=== PATIENT | female | born 1950 | race Caucasian/White ===

== ENCOUNTER 2017-02-06 19:29 | Emergency (ER) | payer MEDICARE ==
[~2017-02-06] VITALS: Ht 149.9 cm; Wt 65.8 kg
[~2017-02-06 19:29] MED LIST: FUROSEMIDE 40MG40 M1 PO; K-DUR 20MEQ TA20 MEQ PO; KEFLEX 500MG.500 MG PO; LEVAQUIN500 MG PO; LIPITOR40 MG PO; MECLIZINE25 MG PO; MEDROL 4MG. DOSE4 MG PO; ONE DAILY WOME1 EACH PO; VITAMIN D1000 IU PO
[2017-02-06] MEDS ORDERED: IPRATROPIUM BROM3 M1 IH (19:46)
[2017-02-06] MEDS ORDERED: VENTOLIN H0.09 MG/AC IH (19:46)
--- NOTE | 2017-02-06 19:58 | [facility]gent Treatment Center Report ---
History of Present Issue Date/Time Seen by Provider 02/06/171956 Visit Reason Pt arrived:Walked Presenting Problem:PT STATES SHE BEGAN FEELING BAD APPROX 1600 TODAY. STATES PRODUCTIVE COUGH WITH BROWN SPUTUM, HEADACHE, NAUSEA AND FEVER. PT ALSO STATES SHORTNESS OF BREATH. Location if Accident: Onset of symptoms date/time:02/06/17 or onset unknown for: Have you (or family members/close friends) recently traveled outside the [place]? N If Yes, where/when: Have you had exposure to infectious disease within the past month? TB? Other? Specify: c/o productive cough, brown sputum, fatigue and low grade fever, 99.2, today. Hx of COPD and chronic bronchitis. Pt worried about PNA "because I have had it 4 times since June". 3 times from Jun to Sep 2016 all treated without CXR and with azithromycin and steroid (although steroids listed as allergy. "They just raise my blood pressure and make my face red sometimes but I still take them."). [place] pt seen in ER. CXR confirmed dx. treated w/ levaquin. Reports she improved. "I always keep a little cough and some shortness of breath". SOA worse last 2-3 days, only with exertion. Duonebs at home help. Last one 2 hours ago and was 4th once for the day since 0500. Other than duonebs and ventolin inhaler, no other COPD/lung medications or inhalers. Using ventolin "maybe once a day right now but when I am not sick, I go days without using it". Continues to smoke 1/2ppd. Grandkids have been sick but weeks ago. Source patient Exam Limitations no limitations ALLERGIES Coded Allergies: Corticosteroids (Glucocorticoids) (01/30/16) Penicillins (01/30/16) Sulfa (Sulfonamide Antibiotics) (04/08/16) codeine (01/30/16) erythromycin base (01/30/16) Home Medications Reported Medications CHOLECALCIFEROL (VITAMIN D3) (Vitamin D3) 2,000 IUNITS PO DAILY Furosemide 40 MG PO DAILY POTASSIUM CHL (Potassium Chloride) 20 MEQ PO DAILY Atorvastatin Calcium (Atorvastatin) 40 MG PO DAILY Multivit With Calcium,Iron,Min (One Daily Women's) 1 EACH PO DAILY ALBUTEROL-IPRATROPIUM (Iprat-Albut 0.5-3(2.5) MG/3 Ml) 3 ML IH Q2HP PRN ASTHMA #1080 ALBUTEROL (Ventolin Hfa) 1 PUFF IH Q6H6 History Medical History General CAD? No Angina: No VT: No Hypertension? Yes Hyperlipidemia? Yes CHF? No DVT? Yes PE? No COPD? No Asthma? Yes Anemia? No GERD? No Gastric ulcers? No GI Bleed? No Hernia? No Thyroid Problems? No Hypothyroidism? No CVA? No Seizures? No Diabetes? No Renal Insuffiency? No UTI? No Stones? No BPH? No GB Disease: No Nephritic Syndrome? No Asplenia? No Hepatitis? No Sickle Cell Disease? No Arthritis? Yes Migraines? No Cataracts? Yes Glaucoma? No MRSA? No HIV? No TB? No Anxiety? No Depression? No Cancer? No More? No Immunization HX DT/Tetanus 5-10 YRS Flu LAST YEAR Pneumonia 1-4 YRS Surgical Hx Previous Surgery?Y D AND C X 2 Tubal Ligation [place] Appendix LEFT BREAST BIOPSY RIGHT HAND SURGERY X 2 CYST REMOVED L HAND TRIGGER THUMB RT HAND COLONOSCOPY HEART CATH 90'S CATARACTS Family History Family HX Diabetes No CAD Yes Hypertension Yes Hyperlipidemia Yes Cancer Yes TB No Social History Smoking Hx Smoker: Current Every Day Smoker Tobacco: Yes Type Cigarettes Packs/day < 1 Pack Alcohol Alcohol: No Review of Systems All Other Systems Reviewed and Negative Constitutional see HPI ENT denies: ear pain, nose discharge, nose congestion, throat pain. Respiratory see HPI, wheezing ("a little") Cardiovascular denies chest pain Gastrointestinal denies no symptoms reported Musculoskeletal denies back pain Psychiatric/Neurological denies headache Physical Exam Vital Signs Vital Signs Date Time Temp Pulse Resp B/P Pulse O2 O2 Flow FiO2 Ox Delivery Rate 02/06 1942 98.2 101 20 151/82 93 General Appearance normal appearance, no apparent distress Ear, Nose, Throat normal ENT inspection Respiratory Status Yes: trachea midline, chest symmetrical, non tender chest, non productive cough. No: respiratory distress, use of accessory muscles, pain on inspiration, pain on expiration. Lung Sounds posterior: decreased breath sounds (base), crackles (base). left: decreased breath sounds (base). right: crackles (base). Cardiovascular regular rate/rhythm, no peripheral edema, no murmur Neurologic alert Skin normal color, warm/dry Medical Decision Making LABS/Meds/Orders Pt receiving controlled substance in ED? No Results/Orders Current Medication Orders Sig/Scottie Start time Last Medication Dose Route Stop Time Status Admin Doxycycline Hyclate 100 MG ONCE ONE 02/06 2100 DC 02/06 PO 02/06 Doxycycline Hyclate 0 .STK-MED ONE 02/06 2058 DC PO Orders Procedure Date/time Status [facility] FLU A,B 02/07 2008 Active CHEST(2 VIEWS-NOT PORTABLE) 02/06 1950 Active XRAY/CT/US XRAY/CT/US XRAY chest XR interpretation by reviewed by me (rvwd w/ Dr. Tran, ER MD) Xray Results unchanged from Oct. Atelectasis and possible RML PNA Consult MD Physician Consult Consult/PCP Dr. tran, ER MD Time Called 2029 Reason Pt. Condition Comments Suturing another patient initially. 2049 before he was available to discuss pt and review xray. Agrees that xray today looks unchanged when compared to Oct. With symptoms, would treat w/ levaquin or doxy. No suggestion for CT chest. Ensure follow up with primary care Departure Departure Time of Disposition 2055 Disposition DC Home or Self Care(routine) Clinical Impression Primary Impression: Pneumonia Qualifiers: Pneumonia type: due to unspecified organism Laterality: right Lung location: middle lobe of lung Qualified Code: J18.1 - Lobar pneumonia, unspecified organism Condition STABLE Referrals Marcio LUNDBERG,Rocco (Family) Call office thursday morning for follow up appt to discuss symptoms and unchanged CXR from Oct until now. Follow up IMMEDIATELY in ER this weekend for new or worsening symptoms. 911 for difficulty breathing. Patient Instructions DI for Pneumonia -- Adult Additional Instructions * Pharmacy closed tonight. We gave first dose of antibiotic in clinic. OK to start prescription tomorrow morning. Be sure to complete entire prescription even if feeling better. * humidifier/vaporizer/hot steamy shower * Inhaler (if not home) but preferably duoneb (if home) every 4-6 hours as needed like we discussed. Should help open airways and improve cough, wheezing, shortness of breath. * Mucinex during the day for your cough and cough suppressant only at night. Be sure to drink lots of water. Insurance may not cover a prescription of mucinex. Might be cheaper to get 400mg tablets and take 2 tablets morning, midday and evening all with lots of water. * Lots of water * Start steroid in morning. You may not sleep well if you take it tonight. Helps with inflammation therefore, cough and wheezing. Follow directions on package. Rvwd side effects. Pt reports they have taken them before and done ok but occasionally, BP elevates and face flushes. Be sure to monitor BP and follow up if elevated, especially if symptoms present. Call Dr. Buckley thursday Discharge Counseling Counseled pt/family regarding diagnosis, test results, medications/RX, home care, follow up needs Prescriptions Current Visit Scripts Methylprednisolone (Medrol Dose [place]) 4 MG PO UD #1 EUGENE TAKE DIRECTED ON PACKAGING Doxycycline Hyclate (Vibramycin) 100 MG PO BID #19 CAP had first dose in clinic at 2102
[2017-02-06] MEDS ORDERED: MEDROL 4MG. DOSE4 MG PO (21:03)
[2017-02-06] MEDS ORDERED: DOXYCYCLINE HY100 M4 PO (21:03)
[2017-02-06 21:06] VITALS: BP 151/82
--- NOTE | 2017-02-07 08:48 | RADIOLOGY REPORT PS360 ---
CHEST(2 VIEWS-NOT PORTABLE) COMPARISON: PA and lateral chest 11/22/2016 HISTORY: Productive cough TECHNIQUE: PA and lateral chest FINDINGS: The lung wang are well expanded. There are coarse bronchovascular markings in the right infrahilar region and lingula though the appear somewhat more prominent in the lingula on today's study than the previous study in October. Findings are most likely due to postinflammatory scarring though a minimal superimposed infiltrate in the lingula cannot be excluded. The upper lung wang are clear. Cardiac size is normal. IMPRESSION: Chronic scarring bilaterally, cannot deftly exclude a minimal acute pneumonic infiltrate lingula
== END 2017-02-06 21:06 | disposition home or self-care (01) ==
LOC: UTC 19:29
DX: J18.1 Lobar pneumonia, unspecified organism (principal); I10 Essential (primary) hypertension; Z72.0 Tobacco use

== ENCOUNTER → 2017-05-05 | Outpatient (CLI) | payer MEDICARE, MEDICAID ==
[~2017-05-05] MED LIST changes: +ACETAMINOPHEN-H1 TA2 PO; +ALDACTONE 25MG25 MG PO; +CLARITIN LIQUI-10 MG PO; +COREG6.25 MG PO; +DOXYCYCLINE HY100 M4 PO; +IPRATROPIUM BROM3 M1 IH; +LISINOPRIL 5MG T5 MG PO; +MONTELUKAST SOD10 MG PO; +OXYGEN2 IH; +OXYGEN3 IH; +PREDNISONE 20MG20 MG PO; +SYMBICORT1 AE1 IH; +VENTOLIN H0.09 MG/AC IH; +ZITHROMAX Z PA250 MG PO
[2017-05-05 08:51] LABS: BILIRUBIN, INDIRECT 0.22 mg/dL (0-0.9); BUN 23 mg/dL (7-18); GFR (ESTIMATED) 49 ML/MIN (59-)
== END ==
LOC: LAB 07:03
PROVIDERS: Internal Medicine Cardiovascular Disease
DX: I25.10 Atherosclerotic heart disease of native coronary artery without angina pectoris (principal); I27.0 Primary pulmonary hypertension; E78.5 Hyperlipidemia, unspecified; J44.9 Chronic obstructive pulmonary disease, unspecified

== ENCOUNTER → 2017-05-18 | Outpatient (CLI) | payer MEDICARE, MEDICAID ==
--- NOTE | 2017-05-18 15:52 | RADIOLOGY REPORT PS360 ---
CHEST(2 VIEWS-NOT PORTABLE) HISTORY: HEMOPTYSIS ORDERING PHYSICIAN: Rocco Buckley MD PATIENT AGE: 67 years COMPARISON: 03/14/1717 FINDINGS: The cardiomediastinal silhouette and pulmonary vascularity are within normal limits. Atelectatic changes are present in the left mid lung and right perihilar area. There is a new area of parenchymal opacity in the right upper lobe could be due to an area of atelectasis or infiltrate. One cannot exclude the possibility of a developing neoplastic process in this patient with hemoptysis. Follow-up recommended. This persists then, chest CT may be of further value. No effusion. No acute bony anomalies. IMPRESSION: 1. New opacity in the right upper lobe is nonspecific and may be due to atelectasis or infiltrate. Follow-up recommended to confirm resolution. 2. Bilateral chronic changes
== END ==
LOC: RAD 15:21
DX: R04.2 Hemoptysis (principal)

== ENCOUNTER → 2017-06-02 | Outpatient (CLI) | payer MEDICARE, MEDICAID ==
--- NOTE | 2017-06-02 11:20 | RADIOLOGY REPORT PS360 ---
CHEST(2 VIEWS-NOT PORTABLE) HISTORY: Follow-up pneumonia PNEUMONIA ORDERING PHYSICIAN: Rocco Buckley MD PATIENT AGE: 67 years COMPARISON: 05/18/2017 FINDINGS: Borderline cardiomegaly without failure. Chronic changes are once again noted. There remains persistent opacity in the right upper lobe somewhat more prominent with chronic atelectatic or fibrotic change noted in the lingula. No acute bony anomalies. IMPRESSION: Persistent opacification in the right upper lobe somewhat more prominent. Worsening pneumonia or developing mass considered.
== END ==
LOC: RAD 09:07
DX: J18.1 Lobar pneumonia, unspecified organism (principal)

== ENCOUNTER → 2017-08-13 | Outpatient (CLI) | payer MEDICARE ==
[2017-08-13 10:52] LABS: BUN 14 mg/dL (7-18)
[2017-08-13 10:56] LABS: GFR (ESTIMATED) 49 ML/MIN (59-)
== END ==
LOC: LAB 09:35
PROVIDERS: Internal Medicine Cardiovascular Disease
DX: I25.10 Atherosclerotic heart disease of native coronary artery without angina pectoris (principal); I11.9 Hypertensive heart disease without heart failure; I27.20 Pulmonary hypertension, unspecified; J44.9 Chronic obstructive pulmonary disease, unspecified; Z72.0 Tobacco use

== ENCOUNTER → 2017-08-20 | Outpatient (CLI) | payer MEDICARE ==
--- NOTE | 2017-08-20 14:44 | RADIOLOGY REPORT PS360 ---
ARTERIAL/ENG-GOSNMOUANHD-GMQ CLAUDICATION, current smoker, hypertension, hyperlipidemia, bilateral rest pain, bilateral claudication ORDERING PHYSICIAN: SEJAL ROBBINS MD PATIENT AGE: 67 years TECHNIQUE: Segmental pressures obtained of both right and left leg. These are compared to brachial blood pressure to yield index at each level sampled including summary TYREE. The data sheets from the procedure are available in PACS FINDINGS Rest study only performed today No prior studies available for comparison. Blood pressures reported are in millimeters mercury. RIGHT LEG TYREE = 1.1. Brachial BP: 116 Thigh BP: 123 Calf BP: 121 Ankle PT: 126 Ankle DP : 116 Digit =94 LEFT LEG TYREE = 1.2 Brachial BPD: 110 Thigh BP: 118 Calf BP: 138 Ankle PT:144 Ankle DP: 138 Digit = 78 Pulses and waveforms: Normal IMPRESSION: The ABIs as reported above are within normal limits. Waveforms and pulses are also unremarkable.
== END ==
LOC: RT 10:50
DX: M79.604 Pain in right leg (principal); M79.605 Pain in left leg; I25.10 Atherosclerotic heart disease of native coronary artery without angina pectoris; I11.9 Hypertensive heart disease without heart failure; I27.20 Pulmonary hypertension, unspecified; J44.9 Chronic obstructive pulmonary disease, unspecified; F17.200 Nicotine dependence, unspecified, uncomplicated; G25.81 Restless legs syndrome; I70.213 Atherosclerosis of native arteries of extremities with intermittent claudication, bilateral legs

== ENCOUNTER → 2017-09-01 | Outpatient (CLI) | payer MEDICARE ==
[2017-09-01 12:32] VITALS: BP 118/76
[2017-09-01 12:33] VITALS: BP 145/90
== END ==
LOC: RT 09:55
DX: J40 Bronchitis, not specified as acute or chronic (principal); R06.02 Shortness of breath

== ENCOUNTER → 2017-10-09 | Outpatient (CLI) | payer MEDICARE ==
--- NOTE | 2017-10-14 15:09 | RADIOLOGY REPORT PS360 ---
CT CHEST W/O CONTRAST Ordering Physician: Rocco Buckley MD Patient Age: 67 years: Female HISTORY: FU PLEURAL-BASED DENSITIES TECHNIQUE: Helical CT scanning performed the chest with sagittal coronal structures on CT workstation COMPARISON :CT chest on July 06, 2017 and March 22, 2017 IMPRESSION The Pleural-based density periphery the RUL on previous June 2017 study is less evident. There is some residual postinflammatory scarring persisting here. The peripheral bleb feature is less evident.. Benign appearance overall Can be followed. Mild stable linear postinflammatory scarring in the medial right middle lobe is again observed and appear stable. Minimal nodular character this area again seen associated but recently stable since February 2017 ct study. Left chest. Dense linear area of scarring at the inferior medial lingula is actually similar to February 2017. There may be slight additional scarring and atelectasis in this region but no pneumonia or mass. Tiny stable calcified granuloma posterior LLL axial image 42 unchanged. Less than 5 mm size. Not of concern.. The generous anterior fat pad on the left along with slight elevation left hemidiaphragm again noted and stable. Mediastinum. No remarkable mediastinal or hilar adenopathy no hilar mass. Airway satisfactory. Small calcified granulomatous nodes left hilum more so than right reflect old granulomatous disease. Chest wall unremarkable. Mild degenerative changes T-spine. Uppermost abdomen limited imaging here unremarkable. IMPRESSION: No significant new findings. Areas of Linearpostinflammatory scarring bilaterally again noted-. No new areas of concern The previously noted area of density periphery of RUL is again seen but with decreased density here in interval. since June 2017.. Findings here also compatible with merely postinflammatory scarring here as well.
== END ==
LOC: RAD 13:26
DX: Z09 Encounter for follow-up examination after completed treatment for conditions other than malignant neoplasm (principal); R91.1 Solitary pulmonary nodule